=== PATIENT | male | born 1955 | race American Indian/Alaskan Native ===

== ENCOUNTER 2017-10-29 08:41 | Day surgery (SDC) | payer MEDICARE ==
[2017-10-29] MEDS ORDERED: WATER FOR IRRIG STERILE IR ONE (08:58)
[2017-10-29] MEDS ORDERED: NACL 0.9% 1000 ML 1,000 ML IV SCH (09:00)
--- NOTE | 2017-10-29 09:31 | Anesthesia Consultation ---
Anesthesia Consult and Med Hx Date of service: 10/29/17 - Airway Anesthetic Teeth Evaluation: Good, Partials ROM Head & Neck: Adequate Mental/Hyoid Distance: Adequate Mallampati Class: Class II Intubation Access Assessment: Probably Good - Pulmonary Exam CTA: Yes - Pre-Operative Health Status ASA Pre-Surgery Classification: ASA3 Proposed Anesthetic Plan: MAC - Pulmonary Hx Smoking: Yes (1-2 cigs every other day) Hx Asthma: No Hx Sleep Apnea: No - Cardiovascular System Hx Hypertension: Yes (takes carvedilol and lisinopril) Hx Percutaneous Transluminal Coronary Angioplasty (PTCA): No Hx Pacemaker: Yes (exchanged in Aug 2017) Hx Internal Defibrillator: Yes (2010, CHF- last ECHO: moderately depressed) - Central Nervous System Hx Seizures: No CVA: No Hx Psychiatric Problems: No - Endocrine Hx Renal Disease: No Hx Non-Insulin Dependent Diabetes: Yes (takes metformin) - Hematic Hx Anemia: No - Other Systems Hx Cancer: No
--- NOTE | 2017-10-29 09:32 | Anesthesia Day of Surgery ---
Anesthesia Day of Surgery - Day of Surgery Patient Examined: Yes Patient H&P Reviewed: Yes Patient is NPO: Yes Beta Blockers: Yes (carvedilol last night)
[2017-10-29] MEDS ORDERED: DIPRIVAN 10 MG/ML IV ONE ×2 (10:00)
--- NOTE | 2017-10-29 11:09 | Short Stay Summary ---
Short Stay Documentation Date of service: 10/29/17 Narrative H&P: Colonoscopy for rectal bleeding. - History Principal diagnosis: hematochezia Past Medical History: arrhythmia, diabetes, other (pacemaker) Past Surgical History: Other (pacemaker) - Allergies and Medications Current Medications: Allergies tramadol Allergy (Verified 03/30/15 07:05) Itching Home Medications Medication Instructions Recorded Confirmed Last Taken Type Aspirin BABY CHEW TAB 81 tab PO DAILY 03/25/15 10/29/17 10/28/17 History Carvedilol 25 mg PO DAILY 03/25/15 10/29/17 10/28/17 History Cialis 10 mg PO PRN 03/25/15 10/29/17 10/27/17 History Eplerenone 50 mg PO DAILY 03/25/15 10/29/17 10/28/17 History Lasix TAB 80 mg PO DAILY 03/25/15 10/29/17 10/27/17 History Lisinopril 20 mg PO DAILY 03/25/15 10/29/17 10/28/17 History metFORMIN 500 mg PO DAILY 03/25/15 10/29/17 10/28/17 History [place] 10-325 mg TAB 1 tab PO BID 10/29/17 10/29/17 10/26/17 History amLODIPine 5 mg PO DAILY 10/29/17 10/29/17 10/28/17 History Active Medications Sodium Chloride (Nacl 0.9% 1000 Ml) 1,000 mls @ 50 mls/hr IV DIRECT DONTAE Last Admin: 10/29/17 09:31 Dose: 50 mls/hr - Physical exam General appearance: no acute distress Lungs: Clear to auscultation Heart: Regular rate, Normal S1, Normal S2 Gastrointestinal: normal - Hospital course Hospital course: Uneventful colonoscopy. See report. - Disposition Condition at discharge: Good Disposition: [id number] TO HOME OR SELFCARE - Discharge Diagnoses (1) Diverticulosis Status: Acute (2) Internal hemorrhoids Status: Acute (3) Hematochezia Status: Acute Comment: likely hemorrhoidal Short Stay Discharge Plan Activity: other (no driving today) Diet: other (may resume usual diet) Additional Instructions: Repeat colonoscopy for colon screening in 10 years. Consider hemorrhoidectomy in the event of further bothersome rectal bleeding. Follow up with: KENA LEÓN JR, MD [Primary Care Provider] - 7 Days
--- NOTE | 2017-10-29 11:33 | Operative Report ---
Operative Report Operative Report: Date of procedure: 10/29/2017 Preprocedure diagnosis: Hematochezia Post procedure diagnosis: Diverticulosis and internal hemorrhoids Procedure name(s): Colonoscopy Surgeon: Ayush Zarco MD Anesthesia: Monitored anesthesia care EBL: None Procedure: The indications, techniques, potential complications and alternatives , had been discussed in full detail prior to the date of the exam, and once again on the day of the exam. Questions were encouraged and answered, and consent was thereby obtained. The patient was placed in the left lateral decubitus position, and was medicated by anesthesia services. See the anesthesia records for details. The anal sphincter was digitally dilated. The digital exam was unremarkable. The tip of a [employer] adult video colonoscope was inserted through the anal sphincter and into the rectal vault. It was then advanced proximally under continuous visualization of the lumen to the cecum without difficulty. The prep was adequate. Landmarks were identified without difficulty. The cecum contained a solitary diverticulum. The appendiceal orifice and ileocecal valve appeared normal. From the cecum, the instrument was slowly withdrawn with careful circumferential examination of the colonic mucosa. Scattered diverticula were seen in the ascending colon, hepatic flexure, transverse colon , splenic flexure, descending colon and sigmoid colon. There were no stigmata of diverticular bleeding. No polyps or other neoplastic-appearing lesions were seen. The rectum appeared normal from the forward view. Retroflexion in the rectum revealed very prominent internal hemorrhoids without active bleeding. The instrument was fully withdrawn. The procedure was very well tolerated. Post procedure he was monitored in the recovery area of the GI lab to ensure stability prior to his release. See the outpatient record for details regarding instructions to patient, medications and plans for follow-up. Final diagnosis: 1. Diverticulosis coli 2. Internal hemorrhoids, likely responsible for bleeding Next colonoscopy for screening purposes in 10 years. Ayush Zarco M.D. Dictated 10/29/2017 at 11:29 AM
[2017-10-29 11:57] VITALS: BP 139/85
== END 2017-10-29 08:42 | disposition home or self-care (01) ==
LOC: GIO 08:41
PROVIDERS: ATTEND Internal Medicine Gastroenterology
DX: K92.1 Melena (principal); K57.30 Diverticulosis of large intestine without perforation or abscess without bleeding; K64.8 Other hemorrhoids; I11.0 Hypertensive heart disease with heart failure; I50.9 Heart failure, unspecified; E11.9 Type 2 diabetes mellitus without complications; F17.210 Nicotine dependence, cigarettes, uncomplicated; Z79.84 Long term (current) use of oral hypoglycemic drugs; Z88.6 Allergy status to analgesic agent; Z95.810 Presence of automatic (implantable) cardiac defibrillator; Z95.0 Presence of cardiac pacemaker; Z88.5 Allergy status to narcotic agent; Z79.899 Other long term (current) drug therapy
CPT/HCPCS: 45378; 82962; J2704